=== PATIENT | female | born 1955 | race African-American/Black ===

== ENCOUNTER 2025-01-19 23:25 | Emergency (ER) | payer OTHER ==
[~2025-01-19] VITALS: Ht 172.7 cm; Wt 78.0 kg
[2025-01-19 23:31] VITALS: BP 130/79; PULSE 70; RESP 18; TEMP 36.9; O2SAT 98
[2025-01-19] MEDS ORDERED: ONDANSETRON HCL 4MG/2ML INJ IV ONE (23:45)
== END 2025-01-20 00:30 | disposition left against medical advice (07) ==
LOC: ER 23:25 → CMPBEDREQ 01-20 07:27
DX: R42 Dizziness and giddiness (principal); I10 Essential (primary) hypertension; Z53.29 Procedure and treatment not carried out because of patient's decision for other reasons
CPT/HCPCS: 82962; 93005; 99283